=== PATIENT | female | born 1930 | race Caucasian/White ===

== ENCOUNTER 2017-07-24 18:31 | Observation (INO) ==
--- NOTE | 2017-07-24 18:35 | Emergency Department Note ---
ED Disposition Clinical Impression: TIA (transient ischemic attack) Qualifiers: Transient cerebral ischemia type: unspecified Qualified Code(s): G45.9 - Transient cerebral ischemic attack, unspecified Disposition: Still a Patient Condition on Discharge: Good - Critical Care Critical Care Time: No Attestation: On , the high probability of a clinically significant, sudden or life threatening deterioration of the following system(s) required my full and direct attention, intervention and personal management. The time I documented below is in addition to time spent performing reported procedures but includes the following listed in this critical care notation. Medical Decision Making - Isai Inquiry Pt receiving controlled substance: No Vital Signs: 07/24/17 18:39 07/24/17 20:28 07/24/17 20:30 Temperature 99.0 F 99.0 F Temperature Source Oral Oral Pulse Rate 75 Pulse Rate [Left Radial] 78 Respiratory Rate 16 14 Blood Pressure 167/77 Blood Pressure [Right Arm] 141/79 Blood Pressure Mean [Right Arm] 99 Blood Pressure Source Automatic Cuff Blood Pressure Source [Right Arm] Automatic Cuff Blood Pressure Position Sitting Blood Pressure Position [Right Arm] Supine 02 Sat by Pulse Oximetry 96 Oxygen Delivery Method Room Air Room Air Room Air - Lab Data Lab Results 07/24/17 18:30: WBC 7.2, RBC 3.83 L, Hgb 11.6 L, Hct 35.8 L, MCV 93.5, MCH 30.3 , MCHC 32.4, RDW 13.4, Plt Count 208, MPV 9.0, Neut % (Auto) 62.5, Lymph % (Auto ) 26.5, [place] % (Auto) 7.6, Eos % (Auto) 2.7, Baso % (Auto) 0.6, Neut # (Auto) 4.5, Lymph # (Auto) 1.9, [place] # (Auto) 0.6, Eos # (Auto) 0.2, Baso # (Auto) 0.0 07/24/17 18:30: PT 10.7, INR 0.99, APTT 24.2 07/24/17 18:30: Sodium 142, Potassium 4.0, Chloride 105, Carbon Dioxide 31, Anion Gap 10.0, BUN 24 H, Creatinine 0.76, Estimated Creat Clear 47, Estimated GFR 72, Est GFR ( Amer) 88, Glucose 109 H, Calcium 9.1, Total Bilirubin 0.1 L, AST 16, ALT 16, Alkaline Phosphatase 97, Total Protein 7.1, Albumin 3.2 L , Globulin 3.9 H, Albumin/Globulin Ratio 0.8 L 07/24/17 19:20: Urine Color Yellow, Urine Appearance Cloudy, Urine pH 6.5, Ur Specific [place] 1.010, Urine Protein Negative, Urine Glucose (UA) Negative, Urine Ketones Negative, Urine Blood Negative, Urine Nitrate Negative, Urine Bilirubin Negative, Urine Urobilinogen 0.2, Ur Leukocyte Esterase 1+ A, Urine RBC None, Urine WBC 3-5, Ur Squamous Epith Cells 3-5, Urine Bacteria 4+ 07/24/17 19:35: Influenza Type A Ag Negative, Influenza Type B Ag Negative Result diagrams: 07/24/17 18:30 07/24/17 18:30 Orders (Tests/Meds): ED MEDICATIONS Generic Name Dose Route Start Last Admin Trade Name Freq PRN Reason Stop Dose Admin Fludrocortisone Acetate 0.1 mg 07/25/17 09:00 Florinef 0.1mg Tablet PO 08/24/17 08:59 DAILY FADI Levothyroxine Sodium 88 mcg 07/25/17 09:00 Synthroid 88mcg (0.088mg) Tablet PO 08/24/17 08:59 DAILY FADI Non-Formulary Medication 1 each 07/25/17 09:00 Calcium Phosphate Trib/Vit D3 [Calcium + Vitamin D3 Gummies] PO 08/24/17 08: 59 DAILY FADI Non-Formulary Medication 20 mg 07/25/17 09:00 Escitalopram Oxalate [Lexapro] PO 08/24/17 08:59 DAILY FADI Non-Formulary Medication 1 each 07/24/17 21:00 Lactobacillus Acidophilus [Acidophilus] PO 08/23/17 20:59 ACHS FADI Non-Formulary Medication 20 mg 07/25/17 09:00 Omeprazole Magnesium [Prilosec Otc 20mg Tab] PO 08/24/17 08:59 DAILY FADI Non-Formulary Medication 1 each 07/25/17 09:00 Iron Fum/Vit C/B12-If/Folic Ac [Tl Icon Capsule] PO 08/24/17 08:59 DAILY FADI Discontinued Medications Generic Name Dose Route Start Last Admin Trade Name Freq PRN Reason Stop Dose Admin Aspirin 324 mg 07/24/17 20:07 07/24/17 20:15 Aspirin 81mg Chewable Tablet PO 07/24/17 20:08 324 mg ONCE ONE Administration Aspirin 324 mg 07/24/17 20:17 Aspirin 81mg Chewable Tablet PO 07/24/17 20:18 ONCE ONE ORDERS Category Date Time Status XR chest portable Stat Exams 07/24/17 18:45 Taken Urine Culture Stat Micro 07/24/17 19:20 Received - Radiology Data #1 Image(s): Chest chronic elevation R diaphragm, no acute process. - CT Data CT Scan: Head Time Received: 19:[address] Reviewed: Yes: I have viewed the radiologist's interpretation Findings Narrative: no acute process - ECG Data Tracing #1 EKG interpreted by Arun Mcdonnell MD: Rhythm: sinus Rate: 72 [place]: normal Ectopy: Frequent unifocal PVCs Conduction: Borderline prolonged QTC ST Segment Changes: none T Wave Changes: none Q Waves: none No evidence of acute ischemia or injury Prior electrocardiagrams reviewed. No change from prior tracings. Medical Decision Narrative: 7:15 PM: Family present. Discussed patient with them. They confirm the EMS history and in addition state that the patient has complained of generalized achiness for couple of days and increased difficulty with gait. They question flu or UTI. She gets frequent urinary tract infections. She has previously been aspirin, but was taken off due to fall risk. They do not want aggressive treatment and prefer for her to be admitted here rather than being transferred to [place]. 8:00 PM: I have discussed the case with Dr. Duenas for Dr. Ferrari who agrees to admit the patient to the hospital. We discussed the patient's clinical information, including history, exam, laboratory and radiology results and ED course. Per hospital procedure, I will write temporary bridge inpatient orders on the patient. Specific orders requested by the admitting physician: Full dose aspirin now then 81 mg per day. Admit for observation and neuro checks. General Adult HPI - General Chief complaint: Neuro Symptoms/Deficit Stated complaint: POSSIBLE STROKE Time Seen by Provider: 07/24/17 18:32 - History of Present Illness HPI narrative: The patient arrives by ambulance. She reportedly had stroke symptoms including aphasia, left hemiparesis, left facial droop, which resolved by EMS arrival. EMS reports that they believe the symptom onset was about 5:00 PM. They arrived at about 5:45 PM. The patient currently has no complaints. Denies headache. Denies visual disturbance. Denies numbness or weakness. She also reportedly had vomiting at the scene. She is reported to have a history of mild dementia. - Related Data Home Medications Medication Instructions Recorded Confirmed Amiodarone HCl [Cordarone 50 mg PO DAILY 07/24/17 07/24/17 900mg/18mL vial] Calcium Phosphate Trib/Vit D3 1 each PO DAILY 07/24/17 07/24/17 [Calcium + Vitamin D3 Gummies] Escitalopram Oxalate [Lexapro] 20 mg PO DAILY 07/24/17 07/24/17 Fludrocortisone Acetate [Florinef 0.1 mg PO DAILY 07/24/17 07/24/17 0.1mg tablet] Iron Fum/Vit C/B12-If/Folic AC [Tl 1 each PO DAILY 07/24/17 07/24/17 Icon Capsule] Lactobacillus Acidophilus 1 each PO ACHS 07/24/17 07/24/17 [Acidophilus] Levothyroxine Sodium 88 mcg PO DAILY 07/24/17 07/24/17 [Levothyroxine 88mcg (0.088mg) Tab] Miscellaneous [Unknown Home 0 each NOTAPPLIC CONSULT PHARMACY 07/24/17 07/24/17 Medication] Omeprazole Magnesium [Prilosec Otc 20 mg PO DAILY 07/24/17 07/24/17 20mg Tab] Allergies Allergy/AdvReac Type Severity Reaction Status Date / Time Penicillins [PENICILLINS] Allergy Unknown Verified 07/24/17 20:14 [facility] History I have reviewed the patient's past medical history: Yes ROS Obtained: Yes All systems reviewed & no additional complaints - Eyes Eyes: Denies change in vision - Cardiovascular Cardiovascular: Denies chest pain - Respiratory Respiratory: No dyspnea - Gastrointestinal Gastrointestingal: Reports: vomiting - Neurologic Neurologic: Reports as per HPI Physical Exam - General General appearance: alert, in no apparent distress - Head Head exam: atraumatic, normocephalic, normal inspection - Eye Eye exam: Present: normal appearance, PERRL, EOMI - ENT ENT exam: Present: normal exam, normal oropharynx, mucous membranes moist, TM's normal bilaterally, normal external ear exam - Neck Neck exam: Present: normal inspection, full ROM, trachea midline. Absent: meningismus, lymphadenopathy - Chest Chest inspection: Present: normal inspection, symmetric chest wall rise. Absent : tenderness - Respiratory Respiratory exam: Present: normal lung sounds bilaterally. Absent: respiratory distress - Cardiovascular Cardiovascular exam: Present: regular rate, normal rhythm. Absent: JVD - Abdominal Exam Abdominal exam: Present: soft, normal bowel sounds. Absent: distention, tenderness, guarding - Extremities Exam Extremities exam: Present: normal inspection, full ROM, normal capillary refill. Absent: calf tenderness - Back Exam Back exam: Present: normal inspection. Absent: tenderness - Neurological Exam Neurological exam: Present: alert, oriented X3, CN II-XII intact. Absent: motor sensory deficit - Psychiatric Psychiatric exam: Present: normal affect, normal mood - Skin Skin exam: Present: warm, dry, intact, normal color - Lymphatic Lymphatic Findings: no adenopathy
[2017-07-24 19:08] LABS: Basophils % 0.6 % (0.1-2.0); Eosinophils # 0.2 K/mm3 (0.0-0.4); Eosinophils % 2.7 % (0.1-12.0); Hematocrit 35.8 % (37.0-47.0); Hemoglobin 11.6 g/dL (12.2-16.2); Lymphocytes # 1.9 K/mm3 (0.7-4.5); Lymphocytes % 26.5 K/mm3 (10-50); Mean Corpuscular HGB Conc 32.4 g/dL (31.8-35.4); Mean Corpuscular Hemoglobin 30.3 pg (27.0-31.2); Mean Corpuscular Volume 93.5 fl (81-99); Monocytes # 0.6 K/mm3 (0.1-1.0); Monocytes % 7.6 % (1.7-9.3); Neutrophils # 4.5 K/mm3 (1.8-7.8); Neutrophils % 62.5 % (37.0-80.0); Platelet Count 208 K/mm3 (142-424); Red Blood Count 3.83 M/mm3 (4.20-5.40); Red Cell Distribution Width 13.4 % (11.5-17.5); White Blood Count 7.2 K/mm3 (4.8-10.8)
[2017-07-24 19:16] LABS: Activated Partial Thrombo Time 24.2 seconds (23.6-34.0); INR 0.99 (0.9-1.1); Prothrombin Time 10.7 seconds (9.4-11.8)
[2017-07-24 19:19] LABS: Albumin Level 3.2 gm/dL (3.4-5.0); Albumin/Globulin Ratio 0.8 (1.1-1.8); Bilirubin,Total 0.1 mg/dL (0.2-1.0); Calcium 9.1 mg/dL (8.5-10.1); Globulin 3.9 gm/dl (1.3-3.2); Total Protein,Serum 7.1 gm/dL (6.4-8.2)
[2017-07-24 19:30] LABS: Microscopic, Urine URINE MICROSCOPIC (MICROSCOPIC)
[2017-07-24 19:32] LABS: Appearance,Urine CLOUDY (Clear); Bilirubin,Urine Negative (Negative); Blood, Urine Negative (Negative); Color,Urine YELLOW (Yellow); Glucose,Urine (UA) Negative (Negative); Ketones,Urine Negative (Negative); Leukocyte Esterase,Urine 1+ (Negative); PH,Urine 6.5 (5.0-8.5); Protein,Urine Negative (Negative); Urobilinogen,Urine 0.2 EU/dl (0.2)
[2017-07-24 19:45] LABS: Bacteria,Urine 4+ /lpf
--- NOTE | 2017-07-25 07:13 | History & Physical Report ---
*Admission Date: 07/24/17 *Chief complaint: Left arm and leg weakness *History of present illness: 87-year-old female with history of dementia presented to the emergency department after experiencing left arm and leg weakness with left-sided facial drooping and slurred speech at home. Patient was in the presence of her family when symptoms occurred. EMS was contacted and arrived approximately 45 minutes later. By that time symptoms had resolved. Patient was brought to the emergency department for evaluation. She had no recurrence of symptoms. Patient was admitted for observation of TIA. Patient has been on aspirin in the past for general preventive measures and has no personal history of TIAs or stroke. Because of falls at home she was taken off aspirin. Her daughter is at bedside and provides most of the history as patient has some difficulty answering questions about her symptoms. Her daughter feels like the patient is still having some difficulty with speaking [facility] History Medical History: Reports:: Atrial Fibrillation, Cancer Denies:: Diabetes Mellitus Type 1, Diabetes Mellitus Type 2, MRSA Other Medical History: Reports: Cataracts (BOTH EYES), Hypothyroidism Laterality Cases: Left: Breast Biopsy, Bilateral: Tonsillectomy Other Surgeries: Yes: Appendectomy, Colonoscopy, Colon Resection, Hysterectomy- Total Amputation: No Fractures: No - *Social History Educational Level: Completed High School Smoking Status: Never smoker Alcohol Intake: never Occupational Status: retired Housing: house Household Members: children - Psychiatric History Expresses thoughts of harming self/others: None Suicide Plan Description: No Plan *Family Hx:: Cancer, Coronary Artery Disease, Stroke Review of Systems - Review of Systems Review of systems:: pertinent systems reviewed and negative unless documented below Meds Home Medications Medication Instructions Recorded Confirmed Type Amiodarone HCl [Amiodarone 200mg 100 mg PO DAILY 07/24/17 07/24/17 History Tab] Calcium Phosphate Trib/Vit D3 1 each PO DAILY 07/24/17 07/24/17 History [Calcium + Vitamin D3 Gummies] Escitalopram Oxalate [Lexapro] 20 mg PO DAILY 07/24/17 07/24/17 History Fludrocortisone Acetate [Florinef 0.1 mg PO DAILY 07/24/17 07/24/17 History 0.1mg tablet] Iron Fum/Vit C/B12-If/Folic AC 1 cap PO DAILY 07/24/17 07/24/17 History [Ferocon Capsule] Lactobacillus Acidophilus 1 each PO ACHS 07/24/17 07/24/17 History [Acidophilus] Levothyroxine Sodium 88 mcg PO DAILY 07/24/17 07/24/17 History [Levothyroxine 88mcg (0.088mg) Tab] Miscellaneous [Unknown Home 0 each NOTAPPLIC CONSULT PHARMACY 07/24/17 07/24/17 History Medication] Omeprazole Magnesium [Prilosec Otc 20 mg PO BID 07/24/17 07/24/17 History 20mg Tab] Potassium Chloride [Pot Chlor 10 10 meq PO DAILY 07/24/17 07/24/17 History mEq Tab] Allergies Allergy/AdvReac Type Severity Reaction Status Date / Time Penicillins [PENICILLINS] Allergy Intermediate Rash Verified 07/24/17 21:50 Exam Vital signs and Labs for Last 24 Hours: Temp Pulse Resp BP Pulse Ox 98.3 F 71 20 140/64 94 L 07/25/17 04:00 07/25/17 04:00 07/25/17 04:00 07/25/17 04:00 07/25/17 04:00 Laboratory Results - last 24 hr 07/24/17 18:30: WBC 7.2, RBC 3.83 L, Hgb 11.6 L, Hct 35.8 L, MCV 93.5, MCH 30.3 , MCHC 32.4, RDW 13.4, Plt Count 208, MPV 9.0, Neut % (Auto) 62.5, Lymph % (Auto ) 26.5, [place] % (Auto) 7.6, Eos % (Auto) 2.7, Baso % (Auto) 0.6, Neut # (Auto) 4.5, Lymph # (Auto) 1.9, [place] # (Auto) 0.6, Eos # (Auto) 0.2, Baso # (Auto) 0.0 07/24/17 18:30: PT 10.7, INR 0.99, APTT 24.2 07/24/17 18:30: Sodium 142, Potassium 4.0, Chloride 105, Carbon Dioxide 31, Anion Gap 10.0, BUN 24 H, Creatinine 0.76, Estimated Creat Clear 47, Estimated GFR 72, Est GFR ( Amer) 88, Glucose 109 H, Calcium 9.1, Total Bilirubin 0.1 L, AST 16, ALT 16, Alkaline Phosphatase 97, Total Protein 7.1, Albumin 3.2 L , Globulin 3.9 H, Albumin/Globulin Ratio 0.8 L 07/24/17 19:20: Urine Color Yellow, Urine Appearance Cloudy, Urine pH 6.5, Ur Specific [place] 1.010, Urine Protein Negative, Urine Glucose (UA) Negative, Urine Ketones Negative, Urine Blood Negative, Urine Nitrate Negative, Urine Bilirubin Negative, Urine Urobilinogen 0.2, Ur Leukocyte Esterase 1+ A, Urine RBC None, Urine WBC 3-5, Ur Squamous Epith Cells 3-5, Urine Bacteria 4+ 07/24/17 19:35: Influenza Type A Ag Negative, Influenza Type B Ag Negative I & O for Last 24 hours: Intake & Output 07/22/17 07/23/17 07/24/17 07/25/17 11:59 11:59 11:59 11:59 Output Total 441 / 441 Balance -441 / -441 Weight 144 lb 12.8 oz Narrative: Patient is awake and alert sitting up in bed. She is oriented to person. HEENT exam reveals some mild facial asymmetry is almost imperceptible with slight left-sided droop. Oropharynx is moist and clear. Tongue is midline. Neck is without lymphadenopathy or carotid bruits. Lungs are clear to auscultation. Heart has a regular rate and rhythm. Abdomen is soft, nontender , nondistended. Musculoskeletal exam: Patient has active range of motion in all extremities. Strength assessment reveals symmetric bicep, wrist flexor, wrist extensor, dental ceramist assistant strength. Symmetric plantar and dorsiflexor strength, symmetric hamstring and quadriceps strength. Gait was not tested. Neurologically there is no sensory deficit. Assessment and Plan (1) TIA (transient ischemic attack) Current visit: Yes Status: Acute Qualifiers: Transient cerebral ischemia type: unspecified Qualified Code(s): G45.9 - Transient cerebral ischemic attack, unspecified Category: Medical Code(s): G45.9 - Transient cerebral ischemic attack, unspecified - Assessment and plan all Dx Assessment and Plan for all problems:: Patient will undergo TIA/stroke workup with echocardiogram, PT, OT, speech therapy consults, carotid Dopplers. Begin aspirin 81 mg daily. Monitor blood pressure although this was not so elevated on presentation
--- NOTE | 2017-07-25 07:23 | Pharmacy Consult Notes ---
[facility] Pharmacy VTE Monitoring - Patient Demographics Admission date: 07/24/17 Report Date: 07/25/17 Time: 07:23 Allergies/Adverse Reactions: Patient Allergies Penicillins [PENICILLINS] Allergy (Intermediate, Verified 07/24/17 21:50) Rash Height: 1.73 m Weight: 65.68 kg Patient Problems: Current Active Problems TIA (transient ischemic attack) (Acute) - VTE Risk Labs: VTE Related Lab Results Hgb 11.6 g/dL (12.2-16.2) L 07/24/17 18:30 Hct 35.8 % (37.0-47.0) L 07/24/17 18:30 Plt Count 208 K/mm3 (142-424) 07/24/17 18:30 PT 10.7 seconds (9.4-11.8) 07/24/17 18:30 INR 0.99 (0.9-1.1) 07/24/17 18:30 APTT 24.2 seconds (23.6-34.0) 07/24/17 18:30 BUN 24 mg/dL (7-18) H 07/24/17 18:30 Creatinine 0.76 mg/dL (0.55-1.02) 07/24/17 18:30 Estimated Creat Clear 47 mL/min (0-300) 07/24/17 18:30 Was VTE Risk Assessment Performed: Yes VTE Risk Level: Very Low Risk Clinical Trial Participant: No - Prophylaxis VTE Prophylaxis Ordered?: Yes Types of VTE Prophylaxis: TEDS Knee High Location of Applied Device: Bilateral Lower Extremeties
--- NOTE | 2017-07-25 08:33 | Carotid Imaging Report ---
"Cerebrovascular Exam Indications: 435.9 Unspecified transient cerebral ischemia. 433.10 Occlusion/stenosis of carotid artery without cerebral infarction. IMPRESSIONS 1. The bilateral vertebral arteries are patent with normal antegrade flow. 2. Study suggests less than 20% stenosis. 3. Study suggests 50-69% stenosis involving the left internal carotid artery. No change from the study of 27-Oct-2014. Carotid duplex study. Complete study and Doppler flow study including spectral analysis, color and edmonds scale imaging. Location: Bedside. Patient status: Inpatient. Tables: Arterial flow: + +--------+--------+ |Location |V sys |V ed | + +--------+--------+ |Right CCA - proximal|80.9cm/s|14.9cm/s| + +--------+--------+ |Right CCA - distal |53.4cm/s|11cm/s | + +--------+--------+ |Right ECA |75.4cm/s|--------| + +--------+--------+ |Right ICA - proximal|44cm/s |12.6cm/s| + +--------+--------+ |Right ICA - mid |59.1cm/s|14.5cm/s| + +--------+--------+ |Right ICA - distal |93cm/s |17cm/s | + +--------+--------+ |Right vertebral |47.1cm/s|--------| + +--------+--------+ |Left CCA - proximal |65.4cm/s|15.7cm/s| + +--------+--------+ |Left CCA - distal |71.7cm/s|13.2cm/s| + +--------+--------+ |Left ECA |96.8cm/s|--------| + +--------+--------+ |Left ICA - proximal |61cm/s |11.3cm/s| + +--------+--------+ |Left ICA - mid |83cm/s |17.6cm/s| + +--------+--------+ |Left ICA - distal |70.4cm/s|14.5cm/s| + +--------+--------+ |Left vertebral |37.1cm/s|--------| + +--------+--------+ Velocity ratios: + + + + + + | |Right, V sys|Right, V ed|Left, V sys|Left, V ed| + + + + + + |Max ICA/dist CCA|1.74 |1.55 |1.16 |1.33 | + + + + + + Electronically signed by: Geni Silverio [id number]"
--- NOTE | 2017-07-25 13:29 | Discharge Summary ---
General - General Admission date: 07/24/17 Discharge date: 07/26/17 HPI HPI: 87-year-old female with history of dementia presented to the emergency department after experiencing left arm and leg weakness with left-sided facial drooping and slurred speech at home. Patient was in the presence of her family when symptoms occurred. EMS was contacted and arrived approximately 45 minutes later. By that time symptoms had resolved. Patient was brought to the emergency department for evaluation. She had no recurrence of symptoms. Patient was admitted for observation of TIA. Patient has been on aspirin in the past for general preventive measures and has no personal history of TIAs or stroke. Because of falls at home she was taken off aspirin. Her daughter is at bedside and provides most of the history as patient has some difficulty answering questions about her symptoms. Her daughter feels like the patient is still having some difficulty with speaking Hospital Course Hospital Course: She was admitted and at the time of admission had had near resolution of symptoms. By the next morning the only remaining symptom was mild left-sided facial flattening. PT, OT, speech therapy were consulted for evaluations. Patient was deemed appropriate to return home. She did not have any dysphagia nor persistent weakness that impaired mobility and patient physically had returned to baseline. Carotid Dopplers revealed mild carotid disease that is essentially unchanged since 2015. Echocardiogram revealed a normal ejection fraction without valvular disease. As part of patient's treatment plan she was restarted on aspirin 81 mg daily at discharge home health was consulted. Patient was also given an order for hospital bed as patient's impaired mobility , which was present at baseline, makes it difficult for the patient to get in and out of bed. 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, hips, knees Objective Vital signs: Temp Pulse Resp BP Pulse Ox 97.8 F 75 20 162/70 95 07/25/17 07:41 07/25/17 07:41 07/25/17 07:41 07/25/17 07:41 07/25/17 07:41 DS: Diagnosis - Discharge Diagnosis (1) TIA (transient ischemic attack) Status: Acute Discharge Plan - Patient Discharge Instructions ACTIVITY: Continue current activity DIET: continue same diet - Follow up Plan Follow up with: Vanessa Nagel MD [Primary Care Provider] - Disposition: Home Health Service Home Medications: Home Medications Medication Instructions Recorded Confirmed Type Amiodarone HCl [Amiodarone 200mg 100 mg PO DAILY 07/24/17 07/25/17 History Tab] Calcium Phosphate Trib/Vit D3 1 each PO DAILY 07/24/17 07/24/17 History [Calcium + Vitamin D3 Gummies] Escitalopram Oxalate [Lexapro] 20 mg PO DAILY 07/24/17 07/24/17 History Fludrocortisone Acetate [Florinef 0.1 mg PO DAILY 07/24/17 07/24/17 History 0.1mg tablet] Iron Fum/Vit C/B12-If/Folic AC 1 cap PO DAILY 07/24/17 07/24/17 History [Ferocon Capsule] Lactobacillus Acidophilus 1 each PO ACHS 07/24/17 07/24/17 History [Acidophilus] Levothyroxine Sodium 88 mcg PO DAILY 07/24/17 07/24/17 History [Levothyroxine 88mcg (0.088mg) Tab] Omeprazole Magnesium [Prilosec Otc 20 mg PO BID 07/24/17 07/24/17 History 20mg Tab] Potassium Chloride [Pot Chlor 10 10 meq PO DAILY 07/24/17 07/24/17 History mEq Tab] Fludrocortisone Acetate [Florinef 0.1 mg PO DAILY 07/25/17 07/25/17 History 0.1mg tablet] Prescriptions/Medication Reconciliation: New Aspirin [Aspirin 81mg EC Tab] 81 mg PO DAILY #30 tablet. Pravastatin Sodium 10 mg PO HS #30 tablet Continue Omeprazole Magnesium [Prilosec Otc 20mg Tab] 20 mg PO BID Levothyroxine Sodium [Levothyroxine 88mcg (0.088mg) Tab] 88 mcg PO DAILY Lactobacillus Acidophilus [Acidophilus] 1 each PO ACHS Fludrocortisone Acetate [Florinef 0.1mg tablet] 0.1 mg PO DAILY Escitalopram Oxalate [Lexapro] 20 mg PO DAILY Potassium Chloride [Pot Chlor 10 mEq Tab] 10 meq PO DAILY Iron Fum/Vit C/B12-If/Folic AC [Ferocon Capsule] 1 cap PO DAILY Amiodarone HCl [Amiodarone 200mg Tab] 100 mg PO DAILY Fludrocortisone Acetate [Florinef 0.1mg tablet] 0.1 mg PO DAILY Calcium Phosphate Trib/Vit D3 [Calcium + Vitamin D3 Gummies] 1 each PO DAILY
--- NOTE | 2017-07-25 14:29 | Cardiology Report ---
PROCEDURE: 2-D M-mode and color Doppler study INDICATIONS FOR THE TEST: Chest pain COPD Heart Murmur Tobacco Smoking Palpitations Fatigue Syncope Edema Hypertension Diabetes Mellitus Rheumatic Fever SOB [place] Obesity Hyperlipidemia Family History HD Additional History PVCS, TIA,DEMENTIA PATIENT INFORMATION HEIGHT: 68 WEIGHT:144 GENDER: Female B/P:141/79 2-D/M-MODE INTERPRETATION: 2-D MEASUREMENTS OBSERVED VALUES IN CMS Right Ventricular Dimension (RVDd) 2.2 Interventricular Septum (Thickness)(IVsd) .7 Left Ventricular Internal Dimensions(LVIDd) 5.4 Left Ventricular Posterior Wall (Thickness)(LVPWd) .7 Aortic Root 2.9 Aortic Cusp Separation 1.8 Left Atrial Dimensions (LAD) 3.1 2D 1. Left atrium is normal size, left ventricle is normal size, there is no concentric left ventricular hypertrophy, visually estimated ejection fraction 55% with no obvious regional wall motion abnormality. 2. The right atrium and right ventricle are normal size and contractility. 3. The aortic valve is minimally thickened and fibrosed. 4. The mitral valve has mitral calcification there is no mitral stenosis 5. The tricuspid valve is grossly normal. 6. The pulmonic valve is poorly visualized. 7. No significant pericardial effusion noted. DOPPLER INTERROGATION: Doppler interrogation of the aortic, mitral and tricuspid valvular presence of mild mitral and tricuspid regurgitation, tricuspid and enteric velocity insufficient for calculation of the right ventricular systolic pressure, grade 1 diastolic dysfunction seen without tissue Doppler evidence of raised left atrial pressure. CONCLUSION: 1. Normal left ventricular size, preserved left ventricular systolic function, visually estimated ejection fraction 55% with no obvious regional wall motion abnormality, grade 1 diastolic dysfunction seen without tissue Doppler evidence of raised left atrial pressure. 2. Mild mitral and tricuspid regurgitation 3. No significant pericardial effusion noted.
== END 2017-07-26 09:15 | disposition home health service (06) ==
LOC: ER 18:31 → 2ND 18:31
PROVIDERS: ADMIT Internal Medicine Adolescent Medicine; ATTEND Family Medicine